=== PATIENT | female | born 1985 ===

== ENCOUNTER 2025-02-18 15:55 | Outpatient (CLI) | payer BC, SELFPAY ==
--- NOTE | ~2025-02-18 | US_ITS ---
EXAM/PROCEDURE: US transvaginal HISTORY: Pelvic pain COMPARISON: None available. TECHNIQUE: Endovaginal pelvic ultrasound performed LMP: January 23, 2025. FINDINGS: The uterus measures 6.7 x 4.2 x 3.8 cm and appears normal in echotexture other than 8mm nabothian cysts. Endometrial stripe: 1.1 cm Right ovary: 4.0 x 2.9 x 2.0 cm Left ovary: 3.3 x 2.7 x 1.7 cm Both ovaries appear normal in echotexture and vascular flow. No free fluid seen. IMPRESSION: Pelvic ultrasound within normal limits. Endometrial stripe thickness of 1.1 cm within normal limits for the secretory phase of the menstrual cycle. Reviewed, dictated and finalized at location A. [employer]
== END 2025-02-18 15:56 | disposition home or self-care (01) ==
PROVIDERS: PCP Nurse Practitioner; Visit Provider Nurse Practitioner
DX: R10.20 Pelvic and perineal pain unspecified side (principal)
CPT/HCPCS: 76830